=== PATIENT | female | born 1990 | race Hispanic/Latino ===

== ENCOUNTER 2020-12-22 16:42 | Emergency (ER) | payer OTHER ==
--- NOTE | 2020-12-22 18:06 | ER ---
Nurse's Notes [facility] Name: Maci Harris Age: 30 yrs Sex: Female : 1990 Arrival Date: 12/22/2020 Time: 16:45 Bed Waiting Private MD: Diagnosis: Presentation: 12/22 17:14 Chief complaint: Patient states: Dog bite to R hand/ wrist that occurred yesterday. PT ss reports she was seen at [facility] yesterday and only had wound care and was sent home with antibiotics. Pt reports it seems like it's getting worse. Coronavirus screen: Client denies travel out of the [place] in the last 14 days. Ebola Screen: Patient denies exposure to infectious person. Patient denies travel to an Ebola-affected area in the 21 days before illness onset. Initial Sepsis Screen: Does the patient meet any 2 criteria? No. Patient's initial sepsis screen is negative. Does the patient have a suspected source of infection? No. Patient's initial sepsis screen is negative. Risk Assessment: Do you want to hurt yourself or someone else? Patient reports no desire to harm self or others. Onset of symptoms was December 21, 2020. 17:14 Method Of Arrival: Ambulatory 17:14 Acuity: ARVIND 4 ss Historical: - Allergies: 17:19 Bactrim; ss - Immunization history:: Client reports having NOT received the Covid vaccine. - Social history:: Smoking status: Patient/guardian denies using tobacco, Stopped _ months ago 3. Assessment: 18:04 Reassessment: Pt stated wanting to leave due to 'too many people in the lobby and vg1 sneezing'. Vital Signs: 17:14 BP 136 / 95; Pulse 77; Resp 16; Temp 97.9(TE); Pulse Ox 98% on R/A; Weight 158.76 kg; ss Height 5 ft. 4 in. (162.56 cm); Pain 10/10; 17:14 Body Mass Index 60.08 (158.76 kg, 162.56 cm) ED Course: 16:45 Patient arrived in ED. ds1 17:19 Triage completed. ss 17:19 Arm band placed on right wrist. ss Administered Medications: No medications were administered Outcome: 18:05 Patient left the ED. vg1 Signatures: Flory Sung1 Annelise Anderson, RN RN ss Daron, Katrina, RN RN vg1
[2020-12-22 18:09] VITALS: BP 136/95; TEMP 97.9; O2SAT 98
== END 2020-12-22 18:05 | disposition left against medical advice (07) ==
LOC: ER 16:42
DX: Z53.21 Procedure and treatment not carried out due to patient leaving prior to being seen by health care provider (principal)
CPT/HCPCS: 99281